=== PATIENT | female | born 1960 | race Caucasian/White ===

== ENCOUNTER 2021-12-09 13:51 | Observation (INO) | payer BC ==
[2021-12-09] MEDS ORDERED: ASPIRIN 81 MG PO STA (14:21)
[2021-12-09] MEDS ORDERED: SODIUM CHLORIDE 0.9% 1,000 ML IV STA (14:21)
--- NOTE | 2021-12-09 14:24 | ED ---
General Adult HPI - General Chief complaint: Chest Pain Stated complaint: Chest pain Time Seen by Provider: 12/09/21 14:07 Source: patient, RN notes reviewed Mode of arrival: ambulatory Limitations: no limitations - History of Present Illness Initial comments: Patient is a pleasant 61-year-old female presenting to the emergency department chest discomfort. Onset of symptoms was around 11:30 this morning. 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 Discomfort feels like indigestion. There has been some radiation to the neck and back and left shoulder. Symptoms have been intermittent. Patient is symptom free at this time. When symptoms get bad as comfort does go up to 5 or 6/10. No associated nausea, diaphoresis, or dyspnea. No history of similar symptoms previously. - Related Data Allergies Allergy/AdvReac Type Severity Reaction Status Date / Time codeine Allergy Unknown Verified 12/09/21 14:06 Review of Systems ROS Statement: Those systems with pertinent positive or pertinent negative responses have been documented in the HPI. ROS Other: All systems not noted in ROS Statement are negative. Constitutional: Denies: fever Eyes: Denies: eye pain ENT: Denies: ear pain Respiratory: Denies: cough Cardiovascular: Reports: as per HPI, chest pain Endocrine: Denies: fatigue Gastrointestinal: Denies: abdominal pain Genitourinary: Denies: dysuria Musculoskeletal: Denies: back pain Skin: Denies: rash Neurological: Denies: weakness Past Medical History Past Medical History: Hypertension Additional Past Medical History / Comment(s): Heart Ablation in 2007- Irregular heart beat. Hyperthyroid. History of Any Multi-Drug Resistant Organisms: None Reported Past Surgical History: Cholecystectomy Additional Past Surgical History / Comment(s): Heart Alation. Tubal ligation. Biopsy lymphnodes (left side). Past Psychological History: No Psychological Hx Reported Smoking Status: Current every day smoker Past Alcohol Use History: Occasional Past Drug Use History: None Reported General Exam Limitations: no limitations General appearance: alert, in no apparent distress Head exam: Present: normocephalic Eye exam: Present: normal appearance Neck exam: Present: normal inspection Respiratory exam: Present: normal lung sounds bilaterally. Absent: chest wall tenderness Cardiovascular Exam: Present: regular rate, normal rhythm, normal heart sounds Expanded Peripheral pulses: 2+: Radial (R), Radial (L), Posterior Tibialis (R), Posterior Tibialis (L) GI/Abdominal exam: Present: soft. Absent: tenderness Extremities exam: Present: normal inspection. Absent: pedal edema, calf tenderness Neurological exam: Present: alert Psychiatric exam: Present: normal affect, normal mood Skin exam: Present: normal color Course Vital Signs 12/09/21 14:01 Temperature 97.8 F Pulse Rate 83 Respiratory 18 Rate Blood Pressure 154/79 O2 Sat by Pulse 99 Oximetry EKG Findings - EKG Comments: EKG Findings:: Sinus rhythm with rate of 77. IA 132. QRS 88. QT 368. QTC 400. Normal axis. Normal QRS. No acute ST change. Medical Decision Making - Medical Decision Making Patient reevaluated and resting comfortably in bed. Patient updated on results and plan. Case was discussed with Dr. Martinez, who will admit. - Lab Data Result diagrams: 12/09/21 14:48 12/09/21 14:48 Lab Results 12/09/21 12/09/21 12/09/21 Range/Units 14:48 14:48 14:48 WBC 8.6 (3.8-10.6) k/uL RBC 3.87 (3.80-5.40) m/uL Hgb 13.7 (11.4-16.0) gm/dL Hct 39.8 (34.0-46.0) % MCV 102.6 H (80.0-100.0) fL MCH 35.2 H (25.0-35.0) pg MCHC 34.3 (31.0-37.0) g/dL RDW 12.8 (11.5-15.5) % Plt Count 305 (150-450) k/uL MPV 6.7 Neutrophils % 69 % Lymphocytes % 19 % Monocytes % 6 % Eosinophils % 3 % Basophils % 1 % Neutrophils # 5.9 (1.3-7.7) k/uL Lymphocytes # 1.7 (1.0-4.8) k/uL Monocytes # 0.5 (0-1.0) k/uL Eosinophils # 0.2 (0-0.7) k/uL Basophils # 0.1 (0-0.2) k/uL Macrocytosis Slight PT 9.9 (9.0-12.0) sec INR 0.9 (<1.2) APTT 26.3 (22.0-30.0) sec D-Dimer 0.22 (<0.60) mg/L FEU Sodium 130 L (137-145) mmol/L Potassium 4.1 (3.5-5.1) mmol/L Chloride 99 (98-107) mmol/L Carbon Dioxide 26 (22-30) mmol/L Anion Gap 5 mmol/L BUN 8 (7-17) mg/dL Creatinine 0.62 (0.52-1.04) mg/dL Est GFR (CKD-EPI)AfAm >90 (>60 ml/min/1.73 sqM) Est GFR (CKD-EPI)NonAf >90 (>60 ml/min/1.73 sqM) Glucose 105 H (74-99) mg/dL Calcium 9.6 (8.4-10.2) mg/dL Magnesium 1.8 (1.6-2.3) mg/dL Total Bilirubin 0.9 (0.2-1.3) mg/dL AST 28 (14-36) U/L ALT 16 (4-34) U/L Alkaline Phosphatase 42 (38-126) U/L Troponin I (0.000-0.034) ng/mL Total Protein 6.8 (6.3-8.2) g/dL Albumin 4.1 (3.5-5.0) g/dL Amylase 62 (30-110) U/L Lipase 151 (23-300) U/L 12/09/21 Range/Units 14:48 WBC (3.8-10.6) k/uL RBC (3.80-5.40) m/uL Hgb (11.4-16.0) gm/dL Hct (34.0-46.0) % MCV (80.0-100.0) fL MCH (25.0-35.0) pg MCHC (31.0-37.0) g/dL RDW (11.5-15.5) % Plt Count (150-450) k/uL MPV Neutrophils % % Lymphocytes % % Monocytes % % Eosinophils % % Basophils % % Neutrophils # (1.3-7.7) k/uL Lymphocytes # (1.0-4.8) k/uL Monocytes # (0-1.0) k/uL Eosinophils # (0-0.7) k/uL Basophils # (0-0.2) k/uL Macrocytosis PT (9.0-12.0) sec INR (<1.2) APTT (22.0-30.0) sec D-Dimer (<0.60) mg/L FEU Sodium (137-145) mmol/L Potassium (3.5-5.1) mmol/L Chloride (98-107) mmol/L Carbon Dioxide (22-30) mmol/L Anion Gap mmol/L BUN (7-17) mg/dL Creatinine (0.52-1.04) mg/dL Est GFR (CKD-EPI)AfAm (>60 ml/min/1.73 sqM) Est GFR (CKD-EPI)NonAf (>60 ml/min/1.73 sqM) Glucose (74-99) mg/dL Calcium (8.4-10.2) mg/dL Magnesium (1.6-2.3) mg/dL Total Bilirubin (0.2-1.3) mg/dL AST (14-36) U/L ALT (4-34) U/L Alkaline Phosphatase (38-126) U/L Troponin I <0.012 (0.000-0.034) ng/mL Total Protein (6.3-8.2) g/dL Albumin (3.5-5.0) g/dL Amylase (30-110) U/L Lipase (23-300) U/L Disposition Clinical Impression: Chest pain Disposition: ADMITTED IP TO THIS [facility] Is patient prescribed a controlled substance at d/c from ED?: No Decision Time: 15:36
[2021-12-09 14:53] LABS: Basophils # (A) 0.1 k/uL (0-0.2); Basophils % (A) 1 %; Eosinophils # (A) 0.2 k/uL (0-0.7); Eosinophils % (A) 3 %; HCT 39.8 % (34.0-46.0); HGB 13.7 gm/dL (11.4-16.0); Lymphocytes # (A) 1.7 k/uL (1.0-4.8); Lymphocytes % (A) 19 %; MCH 35.2 pg (25.0-35.0); MCHC 34.3 g/dL (31.0-37.0); MCV 102.6 fL (80.0-100.0); Macrocytosis Slight; Mean Platelet Volume 6.7; Monocytes # (A) 0.5 k/uL (0-1.0); Monocytes % (A) 6 %; Neutrophils # (A) 5.9 k/uL (1.3-7.7); Neutrophils % (A) 69 %; Platelet Count 305 k/uL (150-450); RBC 3.87 m/uL (3.80-5.40); RDW 12.8 % (11.5-15.5); WBC 8.6 k/uL (3.8-10.6)
[2021-12-09 15:05] LABS: ALT 16 U/L (4-34); AST 28 U/L (14-36); African American GFR (CKD) >90 (>60 ml/min/1.73 sqM); Albumin 4.1 g/dL (3.5-5.0); Alkaline Phosphatase 42 U/L (38-126); Amylase 62 U/L (30-110); Anion Gap 5 mmol/L; Blood Urea Nitrogen 8 mg/dL (7-17); Calcium 9.6 mg/dL (8.4-10.2); Carbon Dioxide 26 mmol/L (22-30); Chloride 99 mmol/L (98-107); Glucose 105 mg/dL (74-99); Lipase 151 U/L (23-300); Magnesium 1.8 mg/dL (1.6-2.3); Non-African American GFR(CKD) >90 (>60 ml/min/1.73 sqM); Sodium 130 mmol/L (137-145); Total Bilirubin 0.9 mg/dL (0.2-1.3); Total Protein 6.8 g/dL (6.3-8.2)
[2021-12-09 15:08] LABS: Potassium 4.1 mmol/L (3.5-5.1)
[2021-12-09 15:09] LABS: INR 0.9 (<1.2); Partial Thromboplastin Time 26.3 sec (22.0-30.0); Prothrombin Time 9.9 sec (9.0-12.0)
[2021-12-09] MEDS: NITROGLYCERIN OINT 1 INCH/GM PACKET TOPICAL STA ×2 (15:15→15:16)
[2021-12-09] MEDS ORDERED: NITROGLYCERIN SL TABS 0.4 MG TAB SUBLINGUAL PRN (15:36)
[2021-12-09] MEDS ORDERED: ACETAMINOPHEN TAB 325 MG TAB PO PRN (15:58)
[2021-12-09] MEDS ORDERED: MAG HYDROX/AL HYDROX/SIMETH 30 ML CUP PO PRN (15:58)
[2021-12-09] MEDS ORDERED: ONDANSETRON 4 MG/2 ML VIAL IVP PRN (15:58)
[2021-12-09] MEDS ORDERED: NALOXONE 0.4 MG/ML 1 ML VIAL IV PRN (15:58)
--- NOTE | 2021-12-09 16:01 | P.HPIM ---
History of Present Illness H&P Date: 12/09/21 61-year-old female with past medical history of heart ablation she's not sure for SVT or A. fib admitted to the hospital with chest pain that started last night awakening her from sleep with substernal stayed for around to 3 hours Review of systems and systems has been reviewed all negative and positive findings as per history of present illness Constitutional: No acute distress, conversant, pleasant Eyes: Anicteric sclerae, moist conjunctiva, no lid-lag PERRLA ENMT: NC/AT Oropharynx clear, no erythema, exudates Neck: Supple, FROM, no masses, or JVD No carotid bruits No thyromegaly Lungs: Clear to auscultation Clear to percussion Normal respiratory effort, no accessory muscle use Cardiovascular: Heart regular in rate and rhythm, No murmurs, gallops, or rubs No peripheral edema Abdominal: Soft Nontender, no guarding, rebound or rigidity Abdomen moving with respiration Normoactive bowel sounds No hepatomegaly, No splenomegaly No palpable mass No abdominal wall hernia noted Skin: Normal temperature, tone, texture, turgor No induration No subcutaneous nodules No rash, lesions No ulcers Extremities: No digital cyanosis No clubbing Pedal pulses intact and symmetrical Radial pulses intact and symmetrical Normal gait and station No calf tenderness Psychiatric:Alert and oriented to person, place and time Appropriate affect Intact judgement Neuro: Muscles Strength 5/5 in all 4 extremities Sensation to light touch grossly present throughout Cranial nerves II-XII grossly intact No focal sensory deficits Assessment and plan Chest pain typical and atypical features we'll check cardiac enzymes and d-dimer and will consult cardiology History of A. fib versus SVT Past Medical History Past Medical History: Hypertension Additional Past Medical History / Comment(s): Heart Ablation in 2007- Irregular heart beat. Hyperthyroid. History of Any Multi-Drug Resistant Organisms: None Reported Past Surgical History: Cholecystectomy Additional Past Surgical History / Comment(s): Heart Alation. Tubal ligation. Biopsy lymphnodes (left side). Past Psychological History: No Psychological Hx Reported Smoking Status: Current every day smoker Past Alcohol Use History: Occasional Past Drug Use History: None Reported Medications and Allergies Allergies Allergy/AdvReac Type Severity Reaction Status Date / Time codeine Allergy Unknown Verified 12/09/21 14:06 Physical Exam Vitals: Vital Signs Temp Pulse Resp BP Pulse Ox 12/09/21 14:01 97.8 F 83 18 154/79 99 Intake and Output 12/09/21 12/09/21 12/09/21 06:59 14:59 22:59 Other: Weight 63.503 kg Results CBC & Chem 7: 12/09/21 14:48 12/09/21 14:48 Labs: Abnormal Lab Results - Last 24 Hours (Table) 12/09/21 12/09/21 Range/Units 14:48 14:48 MCV 102.6 H (80.0-100.0) fL MCH 35.2 H (25.0-35.0) pg Sodium 130 L (137-145) mmol/L Glucose 105 H (74-99) mg/dL
--- NOTE | 2021-12-09 16:33 | XR ---
EXAMINATION TYPE: XR chest 2V DATE OF EXAM: 12/09/2021 COMPARISON: NONE HISTORY: Chest pain TECHNIQUE: 2 views FINDINGS: Heart and mediastinum are normal. Lungs are clear. Diaphragm is normal. Bony thorax appears normal. IMPRESSION: Normal chest
[2021-12-09] MEDS: NITROGLYCERIN OINT 1 INCH/GM PACKET TOPICAL SCH (19:31)
[2021-12-10] MEDS: NITROGLYCERIN OINT 1 INCH/GM PACKET TOPICAL SCH ×2 (01:28→05:20)
[2021-12-10 07:33] VITALS: BP 127/70; PULSE 76; RESP 18; TEMP 98.1
[2021-12-10] MEDS ORDERED: ASPIRIN 325 MG TAB PO SCH (09:00)
[2021-12-10] MEDS ORDERED: ASPIRIN 81 MG PO SCH (09:00)
[2021-12-10] MEDS ORDERED: LOSARTAN 50 MG TAB PO SCH (09:00)
[2021-12-10] MEDS ORDERED: amLODIPine 5 MG TAB PO SCH (09:00)
[2021-12-10] MEDS ORDERED: THYROID, PORK 30 MG TAB PO SCH (09:00)
--- NOTE | 2021-12-10 09:35 | P.CRDCN ---
History of Present Illness History of present illness: HISTORY OF PRESENTING ILLNESS This is a pleasant 61-year-old hypertension, chronic nicotine dependence, cholecystectomy. 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 We have been asked to see in consultation for chest pain. Patient presents emergency department with an episode of chest pain that began at 11:30 AM yesterday. 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 Chest pain was located in the center of her chest. Radiated across her chest, to her jaw and her back. She thought this was heartburn because she typically gets these symptoms of chest burning radiating to her jaw. However this pain was different and describes it as actual pain. She states when she has heartburn she typically drinks a glass of water and takes Tums however this time she had no relief. She states that chest discomfort would come and go all day yesterday and last about a minute then subside. She denies any associated diaphoresis, nausea, vomiting, lightheadedness, dizziness, shortness of breath, palpitations, syncope or near syncope. She decided to come to the emergency department for further evaluation. She denies any history of [place], stroke, dyslipidemia, diabetes or coronary artery disease. She denies any family history of heart disease. DIAGNOSTICS EKG reveals sinus rhythm, heart rate 77, no significant ST ST-T wave abnormalities suggest acute ischemia. Repeat EKG this morning with similar findings. Telemetry tracings indicate sinus mechanism. Chest xray no acute cardio pulmonary process. Laboratory reviewed, troponin negative 3, d-dimer negative, sodium 130, potassium 4.1, BUN 8, serum creatinine 0.6, amylase and lipase within normal limits, COVID-19 negative Current home medications include amlodipine 5 mg daily, [place] Thyroid, losartan 100 mg daily REVIEW OF SYSTEMS At the time of my exam: CONSTITUTIONAL: Denies fever or chills. CARDIOVASCULAR: Denies chest pain, shortness of breath, orthopnea, PND or palpitations. RESPIRATORY: Denies cough. GASTROINTESTINAL: Denies abdominal pain, diarrhea, constipation, nausea or vomiting. MUSCULOSKELETAL: Denies myalgias. NEUROLOGIC: Denies numbness, tingling, headache or weakness. ENDOCRINE: Denies fatigue, weight change, polydipsia or polyurina. GENITOURINARY: Denies burning, hematuria or urgency with micturation. HEMATOLOGIC: Denies history of anemia or bleeding. PHYSICAL EXAMINATION Blood pressure 127/70, heart rate 76, afebrile, oxygen saturation 95% on room air CONSTITUTIONAL: No apparent distress. HEENT: Head is normocephalic. Pupils are equal, round. Sclerae anicteric. Mucous membranes of the mouth are moist. No JVD. No carotid bruit. CHEST EXAMINATION: Lungs are clear to auscultation. No chest wall tenderness is noted on palpation or with deep breathing. HEART EXAMINATION: Regular rate and rhythm. S1, S2 heard. No murmurs, gallops or rub. ABDOMEN: Soft, nontender. Positive bowel sounds. EXTREMITIES: 2+ peripheral pulses, no lower extremity edema and no calf tenderness. SKIN: Warm, dry NEUROLOGIC EXAMINATION: Patient is awake, alert and oriented x3. ASSESSMENT Chest pain, atypical, acute coronary syndrome has been ruled out Hypertension Chronic nicotine dependence PLAN An acute coronary event has been ruled out with no EKG evidence of ischemia and negative cardiac enzymes. Obtain 2D echocardiogram and doppler study to assess cardiac structure and function. Perform stres echo test to assess for stress induced cardiac ischemia. If abnormal will consider coronary angiography. Smoking cessation discussed and highly recommended. From cardiology perspective, if stress test is negative okay to discharge home. Thank you kindly for this consultation. Nurse practitioner note has been reviewed by physician. Signing provider agrees with the documented findings, assessment, and plan of care. Past Medical History Past Medical History: Hypertension Additional Past Medical History / Comment(s): Heart Ablation in 2007- Irregular heart beat. Hyperthyroid. History of Any Multi-Drug Resistant Organisms: None Reported Past Surgical History: Cholecystectomy Additional Past Surgical History / Comment(s): Heart Alation. Tubal ligation. Biopsy lymphnodes (left side). Past Anesthesia/Blood Transfusion Reactions: No Reported Reaction Past Psychological History: No Psychological Hx Reported Smoking Status: Current every day smoker Past Alcohol Use History: Occasional Past Drug Use History: None Reported Medications and Allergies Home Medications Medication Instructions Recorded Confirmed Type Losartan Potassium [Cozaar] 100 mg PO DAILY 12/09/21 12/09/21 History Thyroid,Pork [[place] Thyroid] 30 mg PO DAILY 12/09/21 12/09/21 History amLODIPine [Norvasc] 5 mg PO DAILY 12/09/21 12/09/21 History Allergies Allergy/AdvReac Type Severity Reaction Status Date / Time codeine Allergy Unknown Verified 12/09/21 16:01 Physical Exam Vitals: Vital Signs Temp Pulse Pulse Pulse Resp BP BP 12/10/21 07:00 98.1 F 76 18 127/70 12/10/21 02:47 98.3 F 83 19 119/66 12/10/21 01:29 71 12/09/21 19:31 71 18 12/09/21 19:00 98.2 F 96 17 107/64 12/09/21 17:27 98.1 F 71 18 132/83 12/09/21 16:50 82 18 141/86 12/09/21 14:01 97.8 F 83 18 154/79 Pulse Ox 12/10/21 07:00 94 L 12/10/21 02:47 95 12/10/21 01:29 12/09/21 19:31 12/09/21 19:00 97 12/09/21 17:27 98 12/09/21 16:50 98 12/09/21 14:01 99 Intake and Output 12/09/21 12/10/21 12/10/21 22:59 06:59 14:59 Intake Total 0 Balance 0 Intake: Oral 0 Other: Voiding Method Toilet # Voids 2 1 Weight 63.503 kg Results 12/09/21 14:48 12/09/21 14:48 Cardiac Enzymes 12/09/21 12/09/21 12/09/21 Range/Units 14:48 14:48 17:22 AST 28 (14-36) U/L Troponin I <0.012 <0.012 (0.000-0.034) ng/mL 12/09/21 Range/Units 21:04 AST (14-36) U/L Troponin I <0.012 (0.000-0.034) ng/mL Coagulation 12/09/21 Range/Units 14:48 PT 9.9 (9.0-12.0) sec APTT 26.3 (22.0-30.0) sec CBC 12/09/21 Range/Units 14:48 WBC 8.6 (3.8-10.6) k/uL RBC 3.87 (3.80-5.40) m/uL Hgb 13.7 (11.4-16.0) gm/dL Hct 39.8 (34.0-46.0) % Plt Count 305 (150-450) k/uL Comprehensive Metabolic Panel 12/09/21 Range/Units 14:48 Sodium 130 L (137-145) mmol/L Potassium 4.1 (3.5-5.1) mmol/L Chloride 99 (98-107) mmol/L Carbon Dioxide 26 (22-30) mmol/L BUN 8 (7-17) mg/dL Creatinine 0.62 (0.52-1.04) mg/dL Glucose 105 H (74-99) mg/dL Calcium 9.6 (8.4-10.2) mg/dL AST 28 (14-36) U/L ALT 16 (4-34) U/L Alkaline Phosphatase 42 (38-126) U/L Total Protein 6.8 (6.3-8.2) g/dL Albumin 4.1 (3.5-5.0) g/dL Current Medications Generic Name Dose Route Start Last Admin Trade Name Freq PRN Reason Stop Dose Admin Acetaminophen 650 mg 12/09/21 15:58 Acetaminophen Tab 325 Mg Tab PO Q6HR PRN Mild Pain or Fever > 100.5 Al Hydroxide/Mg Hydroxide 15 ml 12/09/21 15:58 Mag Hydrox/Al Hydrox/Simeth 30 Ml Cup PO Q6HR PRN Indigestion Amlodipine Besylate 5 mg 12/10/21 09:00 Amlodipine 5 Mg Tab PO DAILY [facility] Aspirin 81 mg 12/10/21 09:00 Aspirin 325 Mg Tab PO DAILY [facility] Losartan Potassium 100 mg 12/10/21 09:00 Losartan 50 Mg Tab PO DAILY [facility] Naloxone HCl 0.2 mg 12/09/21 15:58 Naloxone 0.4 Mg/Ml 1 Ml Vial IV Q2M PRN Opioid Reversal Nitroglycerin 0.4 mg 12/09/21 15:36 Nitroglycerin Sl Tabs 0.4 Mg Tab SUBLINGUAL Q5M PRN Chest Pain Ondansetron HCl 4 mg 12/09/21 15:58 Ondansetron 4 Mg/2 Ml Vial IVP Q8HR PRN Nausea And Vomiting Sodium Chloride 10 ml 12/09/21 21:00 12/09/21 22:34 Sodium Chloride 0.9% Flush 10 Ml Syringe IV 10 ml BID JJ Administration Thyroid 30 mg 12/10/21 09:00 Thyroid, [place] 30 Mg Tab PO DAILY JJ Intake and Output 12/09/21 12/10/2122 22:59 06:59 14:59 Intake Total 0 Balance 0 Intake: Oral 0 Other: Voiding Method Toilet # Voids 2 1 Weight 63.503 kg 12/09/21 14:48 12/09/21 14:48
[2021-12-10 10:21] LABS: Basophils # (A) 0.08 X 10*3/uL (0.00-0.10); Basophils % (A) 0.8 %; HCT 40.1 % (37.2-46.3); HGB 13.3 g/dL (12.0-15.0); Immature Grans, Automated 0.3 %; Lymphocytes # (A) 2.92 X 10*3/uL (0.90-5.00); Lymphocytes % (A) 29.1 %; MCH 33.8 pg (27.0-32.0); MCHC 33.2 g/dL (32.0-37.0); Monocytes # (A) 0.94 X 10*3/uL (0.20-1.00); Monocytes % (A) 9.4 %; NRBC Per 100 WBC 0 /100 WBCS (0.0-0.0); Neutrophils # (A) 5.76 X 10*3/uL (1.80-7.70); Neutrophils % (A) 57.4 %; Platelet Count 318 X 10*3/uL (140-440); RBC 3.93 X 10*6/uL (4.10-5.20); RDW 13.1 % (11.5-14.5); WBC 10.03 X 10*3/uL (4.50-10.00)
[2021-12-10 10:26] LABS: ALT 14 U/L (8-44); AST 12 U/L (13-35); African American GFR (CKD) 92.2 (60.0-200.0); Albumin 4.1 g/dL (3.8-4.9); Albumin/Globulin Ratio 2.28 (1.60-3.17); Alkaline Phosphatase 49 U/L (41-126); BUN/Creat Ratio 12.13 Ratio (12.00-20.00); Blood Urea Nitrogen 9.7 mg/dL (9.0-27.0); Calcium 9.5 mg/dL (8.7-10.3); Carbon Dioxide 24.1 mmol/L (20.0-27.5); Chloride 109 mmol/L (96-109); Globulin 1.8 g/dL (1.6-3.3); Glucose 100 mg/dL (70-110); LDL Cholesterol,Calculated 85.1 mg/dL (0.0-131.0); Non-African American GFR(CKD) 79.6 (60.0-200.0); Potassium 4.4 mmol/L (3.5-5.5); Sodium 142 mmol/L (135-145); Total Protein 5.9 g/dL (6.2-8.2); VLDL Calculation 16.54 mg/dL (5.00-40.00)
--- NOTE | 2021-12-10 13:05 | ECHOF ---
Referral Reason: MEASUREMENTS -------- HEIGHT: 160.0 cm WEIGHT: 63.5 kg BP: RVIDd: 2.8 cm (< 3.3) IVSd: 1.3 cm (0.6 - 1.1) LVIDd: 3.6 cm (3.9 - 5.3) LVPWd: 1.2 cm (0.6 - 1.1) IVSs: 1.7 cm LVIDs: 2.2 cm LVPWs: 1.6 cm LAESV Index (A-L): 17.01 ml/m Ao Diam: 3.3 cm (2.0 - 3.7) AV Cusp: 1.9 cm (1.5 - 2.6) LA Diam: 3.4 cm (2.7 - 3.8) MV E Brando: 0.72 m/s MV DecT: 115 ms MV A Brando: 0.72 m/s MV E/A Ratio: 1.00 FINDINGS -------- Sinus rhythm. This was a technically adequate study. The left ventricular size is normal. There is mild concentric left ventricular hypertrophy. Overa ll left ventricular systolic function is normal with, an EF between 55 - 60 %. The diastolic fillin g pattern is normal for the age of the patient 12.79. The right ventricle is normal in size. Normal LA size by volume 22+/-6 ml/m2. The right atrial size is normal. Interatrial and interventricular septum intact. The aortic valve is trileaflet, and appears structurally normal. No aortic stenosis or regurgitation. The mitral valve is normal. No mitral regurgitation. The tricuspid valve appears structurally normal. Trace tricuspid regurgitation present. Unable to estimate RVSP due to inadequate TR jet spectral doppler profile. There is no pulmonic regurgitation present. The aortic root size is normal. IVC Not well visulized. Echo free space represents a pericardial fat pad. CONCLUSIONS -------- 1. There is mild concentric left ventricular hypertrophy. 2. Overall left ventricular systolic function is normal with, an EF between 55 - 60 %. 3. The aortic valve is trileaflet, and appears structurally normal. No aortic stenosis or regurgitati on. 4. Trace tricuspid regurgitation present. BOTTLE PACKING MACHINE CLEANER: Umu Kirby [facility]
--- NOTE | 2021-12-10 13:57 | P.DS ---
Providers Date of admission: 12/09/21 15:36 Attending physician: Asha Mittal DO Consults: 12/09/21 15:36 Consult Physician Urgent Consulting Provider: Param Alba Reason/Comments: cp Do you want consulting provider notified?: Yes Primary care physician: Jeremy Mathias MD Hospital Course: 61-year-old female with past medical history of atrial ablation admitted to the hospital with chest pain that resolved the patient underwent stress test which was negative patient was given from cardiology to go home Constitutional: No acute distress, conversant, pleasant Eyes: Anicteric sclerae, moist conjunctiva, no lid-lag PERRLA ENMT: NC/AT Oropharynx clear, no erythema, exudates Neck: Supple, FROM, no masses, or JVD No carotid bruits No thyromegaly Lungs: Clear to auscultation Clear to percussion Normal respiratory effort, no accessory muscle use Cardiovascular: Heart regular in rate and rhythm, No murmurs, gallops, or rubs No peripheral edema Abdominal: Soft Nontender, no guarding, rebound or rigidity Abdomen moving with respiration Normoactive bowel sounds No hepatomegaly, No splenomegaly No palpable mass No abdominal wall hernia noted Skin: Normal temperature, tone, texture, turgor No induration No subcutaneous nodules No rash, lesions No ulcers Extremities: No digital cyanosis No clubbing Pedal pulses intact and symmetrical Radial pulses intact and symmetrical Normal gait and station No calf tenderness Psychiatric:Alert and oriented to person, place and time Appropriate affect Intact judgement Neuro: Muscles Strength 5/5 in all 4 extremities Sensation to light touch grossly present throughout Cranial nerves II-XII grossly intact No focal sensory deficits Discharge plan Chest pain with atypical features that resolved stress test was negative patient cleared to be discharged from cardiology point 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
--- NOTE | 2021-12-10 14:34 | ECHOS ---
STRESS ECHOCARDIOGRAM INDICATIONS: Chest pain BASELINE HEART RATE: 72 BASELINE BLOOD PRESSURE: 110/50 MAXIMUM HEART RATE: 164 MAXIMUM BLOOD PRESSURE: 175/63 85% MPHR: 135 100% MPHR: 159 METS: 10.3 MAXIMUM STAGE REACHED: III TOTAL EXERCISE TIME: 9:12 CLINICAL INFORMATION: Baseline rhythm is sinus mechanism, rate of 72, normal axis and intervals. Normal electrocardiogram. Baseline blood pressure 110/50 mmHg. Patient exercised on Quirino protocol for 9 minutes 12 seconds, reaching a peak rate 164 beats per minute, which is above her 85% of maximum predicted heart rate. Peak blood pressure 175/63 mmHg. Test was terminated secondary to fatigue. There was no chest pain. Electrocardiograph monitoring revealed no evidence of diagnostic ischemic ST deviation. FINDINGS: Baseline echocardiogram revealed normal wall thickening and motion. At peak exercise there was normal wall motion augmentation with no hypokinesis or dyskinesis. CONCLUSION: 1. Good exercise tolerance with normal electrocardiograph response to exercise. 2. Normal stress echocardiogram with no evidence of stress-induced ischemia. MMODL / IJN: [id number] /
== END 2021-12-10 14:30 | disposition home or self-care (01) ==
LOC: EC 13:51 → 6NMEDSUR 15:36
PROVIDERS: ADMIT Internal Medicine; ATTEND Internal Medicine
DX: R07.89 Other chest pain (principal); I10 Essential (primary) hypertension; F17.200 Nicotine dependence, unspecified, uncomplicated; I49.9 Cardiac arrhythmia, unspecified; E05.90 Thyrotoxicosis, unspecified without thyrotoxic crisis or storm; Z20.822 Contact with and (suspected) exposure to COVID-19; Z79.899 Other long term (current) drug therapy; Z79.890 Hormone replacement therapy; Z71.6 Tobacco abuse counseling; Z88.5 Allergy status to narcotic agent; Z90.49 Acquired absence of other specified parts of digestive tract
CPT/HCPCS: 96360; 96361; 99285; 36415; 93005; 93306; 93351; 85379; 80061; 80053 ×2; 82150; 83690; 83735; 84484; 85025 ×2; 85610; 85730; 87635; 71046; G0378 ×2

== ENCOUNTER → 2024-11-17 | Outpatient (CLI) | payer MEDICAID ==
--- NOTE | 2024-11-17 14:57 | MM ---
Reason for Exam: Screening (asymptomatic). Last mammogram was performed 1 year(s) and 3 month(s) ago. Patient History: Menarche at age 18. First Full-Term at age 22. Hormonal Contraceptives, from age 17 until age 30. Core Biopsy on the Left side. Excisional Biopsy on the Right side. 12/17/2004, Benign Ultrasound-Guided Core Biopsy on the left side. Maternal aunt had breast cancer at or over age 50. Risk Values: Zena 5 year model risk: 2.0%. NCI Lifetime model risk: 7.9%. Prior Study Comparison: 08/29/2004 Bilateral Screening Mammogram, [facility]. 10/01/2005 Bilateral Screening Mammogram, [facility]. 11/07/2006 Bilateral Screening Mammogram, [facility]. Tissue Density: The breasts are heterogeneously dense, which may obscure small masses. Findings: Analyzed By CAD. Right breast: There is no suspicious group of microcalcifications or new suspicious mass. Benign-appearing calcifications right breast. Left breast: There is no suspicious group of microcalcifications or new suspicious mass. Overall Assessment: Benign, BI-RAD 2 Management: Screening Mammogram of both breasts in [address] [facility] will attempt to contact patient to return for supplemental views and ultrasound if indicated. Patient should continue monthly self-breast exams. A clinical breast exam by your physician is recommended on an annual basis. This exam should not preclude additional follow-up of suspicious palpable abnormalities. Note on Ezna scores and lifetime risk: 1. A Zena score greater than 3% is considered moderate risk. If this is the case, consider specialist referral to assess eligibility for a risk reducing agent. 2. If overall lifetime risk for the development of breast cancer is 20% or higher, the patient may qualify for future screening with alternating mammogram and breast MRI. [facility], , 11/17/2024 2:54 PM. Electronically signed and approved by: Cameron Riojas DO
== END | disposition home or self-care (01) ==
LOC: RADMAMWWP 14:25
PROVIDERS: ATTEND Internal Medicine
DX: Z12.31 Encounter for screening mammogram for malignant neoplasm of breast (principal); R92.333 Mammographic heterogeneous density, bilateral breasts; Z80.3 Family history of malignant neoplasm of breast
CPT/HCPCS: 77067